=== PATIENT | male | born 1990 | race Caucasian/White ===

== ENCOUNTER 2016-04-25 19:41 | Inpatient (IN) | payer SELFPAY ==
[~2016-04-25] VITALS: Ht 180.3 cm; Wt 70.4 kg
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
[2016-04-25 21:21] LABS: BARBITURATES NEG (NEG); BENZODIAZEPINES POS (NEG); CANNABINOIDS POS (NEG); COCAINE NEG (NEG); ETHANOL, URINE NEG (NEG); METHADONE NEG (NEG); OPIATES NEG (NEG); PHENCYCLIDINE NEG (NEG)
[2016-04-25 21:25] LABS: BASO # 0.1 x10^3/uL (0.0-0.2); BASO % 0 % (0-3); EOS % 0 % (0-3); HEMATOCRIT 48.2 % (39.0-53.0); HEMOGLOBIN 16.3 g/dL (13.0-17.5); LYMPH # 1.6 x10^3/uL (1.0-4.8); LYMPH % 12 % (24-48); MEAN CORPUSCULAR HEMOGLOBIN 32 pg (25-35); MEAN CORPUSCULAR HGB CONC 34 g/dL (31-37); MEAN CORPUSCULAR VOLUME 94 fL (79-100); MONO % 9 % (0-9); NEUT % 78 % (31-73); PLATELET COUNT 207 x10^3/uL (140-400); RED BLOOD COUNT 5.15 x10^6/uL (4.30-5.70); RED CELL DISTRIBUTION WIDTH 13.5 % (11.5-14.5); WHITE BLOOD COUNT 13.3 x10^3/uL (4.0-11.0)
[2016-04-25] MEDS ORDERED: IV NORMAL SALINE 1000ML BAG 1,000 ML IV ONE (21:30)
[2016-04-25 21:33] LABS: CALCIUM 9.9 mg/dL (8.5-10.1); GFR 89.6; POTASSIUM 3.8 mmol/L (3.5-5.1)
[2016-04-25 21:39] LABS: ALBUMIN/GLOBULIN RATIO 1.4 (1.0-1.7); TOTAL BILIRUBIN 1.4 mg/dL (0.2-1.0); TOTAL PROTEIN 8.5 g/dL (6.4-8.2)
--- NOTE | 2016-04-25 21:48 | RAD ---
PROCEDURE Head CT without contrast. HISTORY Altered mental status. TECHNIQUE Computed tomographic images of the head were obtained without contrast. One or more of the following individualized dose reduction techniques were utilized for this examination: 1. Automated exposure control; 2. Adjustment of the mA and/or kV according to patient size; 3. Use of iterative reconstruction technique. COMPARISON None. FINDINGS There is no acute hemorrhage. There is no mass effect or midline shift. There is no hydrocephalus. The [place] and white matter differentiation pattern is intact. The orbits, paranasal sinuses mastoid air cells are unremarkable. No calvarial lesion is seen. IMPRESSION No acute intracranial finding. Electronically signed by: Dea Gill (Apr 25, 2016 21:46:43)
[2016-04-25] MEDS ORDERED: NAPROXEN 500 MG TABLET PO ONE (22:30)
[2016-04-25] MEDS ORDERED: ONDANSETRON PF 4 MG/2 ML VIAL. IV PRN (22:45)
[2016-04-25] MEDS ORDERED: ACETAMINOPHEN 325 MG TABLET. PO PRN (22:45)
[2016-04-26 03:00] VITALS: BP 94/67
[2016-04-26 05:43] LABS: BASO % 1 % (0-3); EOS % 2 % (0-3); HEMATOCRIT 46.1 % (39.0-53.0); HEMOGLOBIN 15.5 g/dL (13.0-17.5); LYMPH % 28 % (24-48); MEAN CORPUSCULAR HEMOGLOBIN 32 pg (25-35); MEAN CORPUSCULAR HGB CONC 34 g/dL (31-37); MEAN CORPUSCULAR VOLUME 95 fL (79-100); MONO % 8 % (0-9); NEUT % 61 % (31-73); PLATELET COUNT 182 x10^3/uL (140-400); RED BLOOD COUNT 4.87 x10^6/uL (4.30-5.70); RED CELL DISTRIBUTION WIDTH 13.6 % (11.5-14.5); WHITE BLOOD COUNT 7.1 x10^3/uL (4.0-11.0)
[2016-04-26 05:45] LABS: CALCIUM 9.1 mg/dL (8.5-10.1); CREATININE 0.8 mg/dL (0.7-1.3); POTASSIUM 3.4 mmol/L (3.5-5.1)
--- NOTE | 2016-04-26 06:43 | EKG ---
[facility] [address] [place] [address] Test Date: 2016-04-25 Test Time: 21:38:46 Pat Name: ANN REYES Department: Room: Gender: M Tree Planter: : 1990 Requested By: ERICA BRICE Order Number: [id number] Reading MD: Measurements Intervals [place] Rate: 79 P: 56 MS: 160 QRS: 34 QRSD: 86 T: 26 QT: 342 QTc: 393 Interpretive Statements SINUS RHYTHM LEFT ATRIAL ABNORMALITY QRS(T) CONTOUR ABNORMALITY CONSIDER ANTEROSEPTAL MYOCARDIAL DAMAGE ABNORMAL ECG RI6.01 No previous ECG available for comparison
[2016-04-26 07:00] VITALS: BP 102/60
--- NOTE | 2016-04-26 08:19 | RAD ---
Indication change in mental status. Protocol study. PA and lateral views of the chest were obtained. No prior imaging of the chest is available. The heart, pulmonary vessels and mediastinum appear normal. The lungs are clear. There is no pleural fluid or pneumothorax. There is slight wedging of a thoracolumbar vertebral body segment, likely chronic. IMPRESSION: No acute finding apparent in the chest
[2016-04-26] MEDS ORDERED: POTASSIUM CHLORIDE 20 MEQ TABLET.ER. PO ONE (09:15)
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
[2016-04-26] MEDS ORDERED: PROP1TAB8 PO (10:01)
[2016-04-26] MEDS ORDERED: PREG150C PO (10:01)
[2016-04-26] MEDS ORDERED: ALPR0.5T PO (10:01)
[2016-04-26] MEDS ORDERED: ALPRAZOLAM 0.5 MG TABLET PO SCH (11:00)
[2016-04-26 11:03] VITALS: BP 114/53
[2016-04-26] MEDS ORDERED: PREGABALIN 75 MG CAPSULE PO SCH (11:15)
[2016-04-26] MEDS ORDERED: PROPRANOLOL 40 MG TABLET. PO SCH (11:15)
[2016-04-26] MEDS ORDERED: HYDROCHLOROTHIAZIDE 25 MG TABLET PO SCH (11:15)
[2016-04-26] MEDS ORDERED: ALPR1TAB6 PO (11:30)
[2016-04-26] MEDS ORDERED: ALPRAZOLAM 1 MG TABLET PO SCH (21:00)
== END 2016-04-26 12:36 | disposition home or self-care (01) | DRG 92 ==
LOC: ER 19:41 → 5 NORTH 22:39
PROVIDERS: ADMIT Internal Medicine; ATTEND Internal Medicine
DX: G92 Toxic encephalopathy (principal); R65.10 Systemic inflammatory response syndrome (SIRS) of non-infectious origin without acute organ dysfunction; F19.10 Other psychoactive substance abuse, uncomplicated; F41.9 Anxiety disorder, unspecified; F32.9 Major depressive disorder, single episode, unspecified; I10 Essential (primary) hypertension; F12.90 Cannabis use, unspecified, uncomplicated; T50.905A Adverse effect of unspecified drugs, medicaments and biological substances, initial encounter; Y92.89 Other specified places as the place of occurrence of the external cause; T50.995A Adverse effect of other drugs, medicaments and biological substances, initial encounter
CPT/HCPCS: 36415; 70450; 71020; 80048; 80053; 83930; 85027; 93005; 96360; G0480; G0481; J7030; 99285-25

== ENCOUNTER 2016-05-13 17:46 | Emergency (ER) | payer SELFPAY ==
[~2016-05-13 17:46] MED LIST: ALPR0.5T PO; ALPR1TAB6 PO; PREG150C PO; PROP1TAB8 PO
[2016-05-13 17:53] VITALS: BP 142/76
--- NOTE | 2016-05-13 18:13 | PHYS DOC ---
Past Medical History Past Medical History: Anxiety, Depression, Fibromyalgia, Hypertension Additional Past Medical Histor: MUSCLE SPASMS, "CMT" Past Surgical History: Other Additional Past Surgical Histo: RIGHT FOOT Alcohol Use: Occasionally Drug Use: Marijuana, Methamphetamine Adult General Chief Complaint Chief Complaint: FLU SYMPTOM [facility] HPI Patient is a 25 year old male presents to the emergency department stating that he's had a 3 week history of generalized body aches and discomfort. He states his been taken [id number] medications for this. He also states that he's been having generalized abdominal pain and discomfort with nausea feeling and diarrhea. Patient has not taken any further dictations for the discomfort in the abdomen. Patient states he last took Excedrin this morning. Review of Systems Review of Systems Constitutional: fever, chills Eyes: Denies change in visual acuity, redness, or eye pain [] HENT: nasal congestion denies sore throat [] Respiratory: cough denies shortness of breath [] Cardiovascular: No additional information not addressed in HPI [] GI: abdominal pain, nausea, and diarrhea denies vomiting : Denies dysuria or hematuria [] Musculoskeletal: Denies back pain or joint pain [] Integument: Denies rash or skin lesions [] Neurologic: Denies headache, focal weakness or sensory changes [] Current Medications Current Medications Current Medications Medications (Trade) Dose Ordered Sig/[facility] Start Time Stop Time Status Last Admin Dose Admin Ibuprofen (Motrin) 800 mg 1X ONCE 05/13/16 18:30 05/13/16 18:31 DC 05/13/16 18:22 800 MG Ondansetron HCl (Zofran Odt) 4 mg 1X ONCE 05/13/16 18:30 05/13/16 18:31 DC 05/13/16 18:16 4 MG Allergies Allergies Allergies Coded Allergies Type Severity Reaction Last Updated Verified No Known Drug Allergies 03/03/15 No Physical Exam Physical Exam Constitutional: Well developed, well nourished, no acute distress, non-toxic appearance. [] HENT: Normocephalic, atraumatic, bilateral external ears normal, oropharynx moist, no oral exudates, nose normal. Bilateral tympanic membranes appear to be normal. Throat with no erythematous or exudate noted. Eyes: PERRLA, EOMI, conjunctiva normal, no discharge. [] Neck: Normal range of motion, no tenderness, supple, no stridor. [] Cardiovascular:Heart rate regular rhythm, no murmur [] Lungs & Thorax: Bilateral breath sounds clear to auscultation [] Abdomen: Bowel sounds hypoactive, soft, generalized tenderness, no masses, no pulsatile masses. No rebound tenderness noted Skin: Warm, dry, no erythema, no rash. [] Back: No tenderness Extremities: No tenderness, no cyanosis, no clubbing, ROM intact, no edema. [] Neurologic: Alert and oriented X 3, normal motor function, normal sensory function, no focal deficits noted. [] Psychologic: Affect normal, judgement normal, mood normal. [] Current Patient Data Vital Signs Vital Signs Date Time Temp Pulse Resp B/P Pulse Ox O2 Delivery O2 Flow Rate FiO2 05/13/16 17:53 98.0 67 16 95 Room Air 98.0 Lab Values Laboratory Tests Test 05/13/16 18:00 Influenza Type A Antigen Negative (NEGATIVE) Influenza Type B Antigen Negative (NEGATIVE) EKG EKG [] Radiology/Procedures Radiology/Procedures [] Course & Med Decision Making Course & Med Decision Making Pertinent Labs and Imaging studies reviewed. (See chart for details) Fluids as well as are negative. Patient will be sent home with a prescription for Zofran for nausea and vomiting. We'll recommend clear liquid diet for the next 24 to hours. Patient will also be provided with amoxicillin for upper respiratory congestion in which she states she's had for the last 3 weeks. Patient will be discharged home with recommendations for Tylenol and ibuprofen for fever chills or generalized body aches and discomfort. Signs and symptoms to return back to emergency department been provided. Patient agrees with discharge instructions treatment regimens and follow-up recommendations. [] Dragon Disclaimer Dragon Disclaimer This electronic medical record was generated, in whole or in part, using a voice recognition dictation system. Departure Departure Impression: Primary Impression: URI (upper respiratory infection) Additional Impression: Vomiting and diarrhea Disposition: 01 HOME, SELF-CARE Condition: STABLE Referrals: SABA MORRIS DO (PCP) Patient Instructions: Clear Liquid Diet, [id number], Nausea and Vomiting, [id number], Upper Respiratory Infection, Adult, [id number]-[id number] Additional Instructions: Home to rest. Medications as prescribed. Tylenol and ibuprofen for fever chills or generalized body aches and discomfort. Clear liquid diet for the next 24 hours. Few diarrhea last over 3 days you may use Imodium [id number]. Through primary care physician in the next 3-5 days. Return back to emergency department for signs and symptoms of become worse. Scripts Amoxicillin 500 Mg Capsule1 Cap PO BID #20 CAP Prov:WARREN ACEVEDO [employer] 05/13/16 Ondansetron (Zofran Odt)4 Mg Tab.rapdis1 Tab SL Q8HRS #10 TAB Prov:WARREN ACEVEDO NP 05/13/16 Problem Qualifiers WARREN ACEVEDO [employer] May 13, 2016 18:13
[2016-05-13] MEDS ORDERED: IBUPROFEN 800 MG TABLET. PO ONE (18:30)
[2016-05-13] MEDS ORDERED: ONDANSETRON ODT 4 MG TAB.RAPDIS PO ONE (18:30)
[2016-05-13 18:46] LABS: OBC FLU VALID
[2016-05-13] MEDS ORDERED: AMOX500C PO (18:51)
[2016-05-13] MEDS ORDERED: ONDA4TAB10 SL (18:51)
== END 2016-05-13 18:55 | disposition home or self-care (01) ==
LOC: ER 17:46
DX: J06.9 Acute upper respiratory infection, unspecified (principal); R11.2 Nausea with vomiting, unspecified; R19.7 Diarrhea, unspecified; M79.7 Fibromyalgia; I10 Essential (primary) hypertension; F12.10 Cannabis abuse, uncomplicated; F15.10 Other stimulant abuse, uncomplicated
CPT/HCPCS: 87804; 99284; Q0162

== ENCOUNTER 2017-09-25 12:55 | Emergency (ER) | payer BC ==
[2017-09-25] MEDS: CYCLOBENZAPRINE 10 MG TABLET. PO (13:56)
[2017-09-25] MEDS: HYDROcodone/APAP 5/325MG 1 TAB TABLET PO (13:56)
== END 2017-09-25 14:43 | disposition home or self-care (01) ==
LOC: ER 14:43
DX: S93.401A Sprain of unspecified ligament of right ankle, initial encounter (principal); I10 Essential (primary) hypertension; F32.9 Major depressive disorder, single episode, unspecified; F41.9 Anxiety disorder, unspecified; W19.XXXA Unspecified fall, initial encounter; Y93.89 Activity, other specified; Y92.89 Other specified places as the place of occurrence of the external cause; Y99.8 Other external cause status
CPT/HCPCS: 29515; 73610; 99284